=== PATIENT | female | born 1960 | race Caucasian/White ===

== ENCOUNTER 2021-05-05 13:17 | Emergency (ER) | payer OTHER ==
[2021-05-05 14:50] LABS: BASOPHIL 0.5 % (0-2); EOSINOPHIL 1.5 % (0-5); HGB 11.9 g/dl (12.5-16.0); LYMPHOCYTE 34.7 % (15-48); MCH 28.3 pg (25.0-31.0); MCHC 32.2 g/dL (32.0-36.0); MCV 88.1 fL (78.0-100.0); MONOCYTE 11.1 % (0-12); MPV 9.6 fL (6.0-9.5); NRBC 0; PLT 256 K/uL (150-400); RDW 13.5 % (11.5-14.0)
[2021-05-05 15:02] LABS: BILIRUBIN NEGATIVE (NEGATIVE); BLOOD NEGATIVE Ery/uL (NEGATIVE); CLARITY CLEAR (CLEAR); COLOR YELLOW (YELLOW); GLUCOSE (U) NORMAL (NORMAL); LEUKOCYTES TRACE Leu/uL (NEGATIVE); NITRITE POSITIVE (NEGATIVE); PROTEIN NEGATIVE (NEGATIVE); UROBILINOGEN 0.2 mg/dL (0.2-1.0)
[2021-05-05 15:08] LABS: BUN/CREAT RATIO (CALC) 20.9 RATIO; CREATININE 0.67 mg/dL (0.51-0.95); POTASSIUM 3.7 mmol/L (3.5-5.1)
[2021-05-05 15:19] LABS: BACTERIA 4+
[2021-05-05] MEDS ORDERED: BACTRIM DS TAB1 EACH PO (17:37)
[2021-05-05] MEDS ORDERED: ZOFRAN4 M1 PO (17:37)
== END 2021-05-05 17:59 | disposition home or self-care (01) ==
LOC: FER 13:17
PROVIDERS: Nurse Practitioner Family
DX: G44.319 Acute post-traumatic headache, not intractable (principal); S09.90XA Unspecified injury of head, initial encounter; W19.XXXA Unspecified fall, initial encounter
CPT/HCPCS: 36415; 70450; 72125; 72128; 80048; 81001; 85025; 87077; 87088; 87186; 96372; J1100; J1885; J2060; J2405; J3030; J7030

== ENCOUNTER 2021-05-25 12:34 | Emergency (ER) | payer OTHER ==
[~2021-05-25 12:34] MED LIST: BACTRIM DS TAB1 EACH PO; ZOFRAN4 M1 PO
[2021-05-25 15:28] LABS: INFLUENZA A NAA NEGATIVE (NEGATIVE)
[2021-05-25 15:29] LABS: CORONAVIRUS 2019 SARS-COV-2 POSITIVE (NEGATIVE)
== END 2021-05-25 19:05 | disposition home or self-care (01) ==
LOC: FER 12:34
PROVIDERS: Emergency Medicine
DX: U07.1 COVID-19 (principal); J44.9 Chronic obstructive pulmonary disease, unspecified; Z23 Encounter for immunization
CPT/HCPCS: M0245; Q0245; U0002